=== PATIENT | male | born 1970 | race Caucasian/White ===

== ENCOUNTER 2018-07-11 07:37 | Emergency (ER) | payer SELFPAY ==
[~2018-07-11] VITALS: Ht 187.9 cm; Wt 120.2 kg
[~2018-07-11 07:37] MED LIST: FLEXERIL10 MG PO; FLUCONAZOLE100 MG PO; LOTRISONE30 ML T; MOTRIN600 MG PO; Motrin,Rufen800 MG PO; NKHM; ULTRAM50 MG PO
== END 2018-07-11 08:20 | disposition home or self-care (01) ==
LOC: ED 07:37
DX: M54.5 Low back pain (principal); F17.200 Nicotine dependence, unspecified, uncomplicated; X50.1XXA Overexertion from prolonged static or awkward postures, initial encounter; Y93.89 Activity, other specified; Y92.89 Other specified places as the place of occurrence of the external cause; Y99.8 Other external cause status

== ENCOUNTER 2024-04-28 05:38 | Emergency (ER) | payer SELFPAY ==
[~2024-04-28] VITALS: Ht 185.4 cm; Wt 127.0 kg
[2024-04-28] MEDS ORDERED: AZITHROMYCIN 250 MG TAB PO ONE (06:40)
[2024-04-28] MEDS ORDERED: ZITHROMAX250 MG PO (06:43)
[2024-04-28] MEDS ORDERED: PREDNISONE20 M1 PO (06:43)
[2024-04-28] MEDS ORDERED: methylPREDNISolone sod succ 125 MG VIAL IM ONE (06:45)
== END 2024-04-28 07:05 | disposition home or self-care (01) ==
LOC: ED 05:38
DX: J18.9 Pneumonia, unspecified organism (principal); Z20.822 Contact with and (suspected) exposure to COVID-19; K21.9 Gastro-esophageal reflux disease without esophagitis